=== PATIENT | male | born 1990 | race African-American/Black ===

== ENCOUNTER 2017-11-08 00:13 | Emergency (ER) | payer MEDICAID ==
[~2017-11-08] VITALS: Ht 190.5 cm; Wt 73.0 kg
[2017-11-08] MEDS ORDERED: SODIUM CHLORIDE 0.9% 1,000 ML IV ONE (03:20)
[2017-11-08] MEDS ORDERED: ONDANSETRON HCL 4MG/2ML VIAL IV STA (03:20)
[2017-11-08 03:41] LABS: CHLORIDE 105 mEq/L (98-107); HEMATOCRIT. 46.8 % (42.0-52.0); HEMOGLOBIN. 15.6 g/dL (14.0-18.0); MEAN CORPUSCULAR HEMOGLOBIN 28.6 pg (28.0-32.0); MEAN CORPUSCULAR VOLUME 85.7 fL (80.0-94.0); MEAN PLATELET VOLUME 7.7 fl (7.4-10.4); PLATELET 214 x1000/uL (130-400); RED BLOOD CELL COUNT 5.46 mill/uL (4.7-6.1); RED CELL DISTRIBUTION WIDTH 13.9 % (11.6-14.6)
[2017-11-08 05:40] VITALS: BP 124/82
[2017-11-08 07:14] LABS: PLATELET ESTIMATE NORMAL
== END 2017-11-08 06:22 | disposition home or self-care (01) ==
LOC: ER 00:13
DX: T62.8X1A Toxic effect of other specified noxious substances eaten as food, accidental (unintentional), initial encounter (principal); F17.200 Nicotine dependence, unspecified, uncomplicated; F12.10 Cannabis abuse, uncomplicated; Y92.89 Other specified places as the place of occurrence of the external cause
CPT/HCPCS: 36415; 80053; 83690; 85025; 96361; 96374; 99284; J2405; J7030